=== PATIENT | female | born 1985 | race Caucasian/White ===

== ENCOUNTER → 2017-01-29 | Outpatient (CLI) | payer BC ==
--- NOTE | ~2017-01-29 | US98 ---
[facility] A Service of [facility] & [facility] RADIOLOGY TEXT RESULTS PATIENT: CRISSY SOSA LOCATION: [facility] : 85 UNIT #: [id number] AGE: [address]: Stacy Sheppard APRN SEX: F ORDER DR: [id number] [address] [address] [id number] O MR#: [id number] Acc #: [id number] NAME: CRISSY SOSA : 1985 SEX: F STUDY DATE/TIME: 01/29/2017 14:49 UNIT: SG ROOM: STUDY DESCRIPTION: US Pelvic Non-OB Complete Attending Physician: Stacy Sheppard A.P.R.N. Referring Physician: Stacy Sheppard A.P.R.N. Ordering Physician: Stacy Sheppard A.P.R.N. Primary Care Physician: Stacy Sheppard A.P.R.N. MEDICAL IMAGING REPORT This report is preliminary unless electronic signature is present. EXAM Pelvic ultrasound INDICATIONS Pelvic pain for 1 year on and off, as well as vaginal discharge for 6 months. Last normal menstrual period 01/20/2017. TECHNIQUE Amaro-scale, color Doppler, and spectral Doppler waveform analysis was performed through the patient's pelvis, both transabdominally and transvaginally. FINDINGS Uterus has a hypoechoic structure which arises from the posterior aspect of the fundus, measuring up to 1.7 x 1.9 x 1.4 cm. I suspect it reflects a uterine fibroid. Right ovary is seen only on transabdominal images. It appears grossly unremarkable. Left ovary is seen on transvaginal images and does appear to have some color-Doppler flow. No follicles are seen within the left ovary. Endometrium measures within normal limits at 7 mm. IMPRESSION 1. Hypoechoic structure arising posteriorly from the uterus is favored to represent uterine fibroid. Uterus is otherwise unremarkable. 2. Right ovary is seen only on transabdominal imaging, but is grossly unremarkable. Dictated by... Eva Tovar M.D. THIS IS AN ELECTRONICALLY VERIFIED REPORT Eva Tovar M.D. at 02/03/2017 7:55 AM [facility] A Service of [facility] RADIOLOGY TEXT RESULTS PATIENT: CRISSY OSSA LOCATION: [facility] : 85 UNIT #: [id number] AGE: [address]: Stacy Sheppard APRN SEX: F ORDER DR: Mati TD: 02/01/2017 15:51 JOB #: [id number] MEDICAL IMAGING REPORT Page 1 of 1
== END | disposition home or self-care (01) ==
LOC: SGUS 14:25
DX: R10.2 Pelvic and perineal pain (principal); R93.7 Abnormal findings on diagnostic imaging of other parts of musculoskeletal system
CPT/HCPCS: 76830; 76856